=== PATIENT | male | born 1950 | race Caucasian/White ===

== ENCOUNTER 2019-06-28 09:27 | Outpatient (CLI) | payer MEDICARE ==
[2019-06-28 11:06] LABS: PTT 26.5 SEC (22.9-36.1); Prothrombin Time 13.6 SEC (12.0-14.7)
--- NOTE | 2019-06-28 11:15 | RAD ---
CHEST 1 VIEW: Date: 06/28/19 Time: 1053 hours HISTORY: Preoperative evaluation. FINDINGS: Comparison made with exam of 11/24/06. The heart size is normal. The lungs are expanded without focal areas of consolidation, pneumothoraces , or pleural effusions. There are degenerative changes in the spine. IMPRESSION: No acute process. POS: ISHA
[2019-06-28 11:21] LABS: ALT (SGPT) 29 U/L (8-55); AST (SGOT) 21 U/L (5-34); Albumin 4.1 g/dL (3.4-4.8); Alkaline Phosphatase 72 U/L (40-150); Anion Gap 10 mmol/L (10-20); BUN (Urea Nitrogen) 13 mg/dL (8.4-25.7); Bilirubin, Total 0.6 mg/dL (0.2-1.2); Calc. Creatinine Clearance 0 mL/min (70-130); Calcium 9.3 mg/dL (7.8-10.44); Carbon Dioxide 26 mmol/L (23-31); Chloride 102 mmol/L (98-107); Estimated GFR-MDRD 88; Globulin 2.8 g/dL (2.4-3.5); Glucose 197 mg/dL (80-115); Potassium 4.1 mmol/L (3.5-5.1); Protein, Total 6.9 g/dL (5.8-8.1); Sodium 134 mmol/L (136-145)
--- NOTE | 2019-06-29 11:03 | EKG ---
Test Reason : Blood Pressure : / mmHG Vent. Rate : 058 BPM Atrial Rate : 058 BPM P-R Int : 174 ms QRS Dur : 086 ms QT Int : 394 ms P-R-T Axes : 058 -10 062 degrees QTc Int : 386 ms Sinus bradycardia Otherwise normal ECG Confirmed by HAYDER ACOSTA ([id number]) on 06/29/2019 11:03:11 AM Referred By: KENTRELL Confirmed By:HAYDER ACOSTA
== END 2019-06-28 09:28 | disposition home or self-care (01) ==
LOC: LABBT 09:27
PROVIDERS: ATTEND Internal Medicine Cardiovascular Disease
DX: Z01.818 Encounter for other preprocedural examination (principal); R94.39 Abnormal result of other cardiovascular function study
CPT/HCPCS: 71045; 80053; 85610; 85730; 93005; 93010

== ENCOUNTER 2019-07-02 05:56 | Day surgery (SDC) | payer MEDICARE ==
[2019-07-02] MEDS ORDERED: Lidocaine 1% (PF) 30 ML VIAL ONE (06:46)
[2019-07-02 07:34] LABS: #Basophils 0.1 thou/uL (0.0-0.2); #Eosinphils 0.5 thou/uL (0.0-0.7); #Lymphocytes 2.6 thou/uL (1.20-3.40); #Monocytes 0.5 thou/uL (0.11-0.59); #Neutrophils 4.2 thou/uL (1.40-6.50); %Basophils 0.6 % (0.0-1.0); %Eosinophils 5.8 % (0.0-10.0); %Lymphocytes 32.9 % (21.0-51.0); %Monocytes 6.9 % (0.0-10.0); %Neutrophils 53.8 % (42.0-75.0); Hemoglobin 13.3 g/dL (14.0-18.0); Mean Corpuscular HGB CONC 35.1 g/dL (32.0-36.0); Mean Platelet Volume 6.6 fL (7.4-10.4); Platelet Count 209 thou/uL (130-400); RBC Distribution Width 11.7 % (11.5-14.5); Red Blood Cell (RBC) Count 4.02 mill/uL (4.70-6.10); White Blood Cell (WBC) Count 7.8 thou/uL (4.8-10.8)
[2019-07-02] MEDS ORDERED: Heparin 10,000 UNITS/1 ML VIAL ONE (07:43)
[2019-07-02] MEDS ORDERED: Nitroglycerin 100MG/250ML BOT 250 ML ONE (07:43)
[2019-07-02] MEDS ORDERED: Verapamil 5 MG/2 ML VIAL ONE (07:53)
[2019-07-02] MEDS ORDERED: Midazolam HCl 2 mg/2 ml Vial ONE (07:53)
[2019-07-02] MEDS ORDERED: Iopamidol 370 76% 100 ML VIAL ONE (10:05)
--- NOTE | 2019-07-03 02:33 | DIS ---
DATE OF ADMISSION: 07/02/2019 DATE OF DISCHARGE: 07/02/2019 DATE OF PROCEDURE: 07/02/2019. HOSPITAL COURSE: A 69-year-old patient with history of coronary artery disease, who has undergone angioplasty and stent placement to the right coronary artery on 2 occasions. He also has a history of hypertension, diabetes, and hypercholesterolemia, was seen in the office, underwent stress testing, was found to have an abnormal stress test. He was advised to undergo cardiac catheterization. He was taken to [facility], where the procedure was performed today. He was found to have mild plaque in the left anterior descending artery. The second diagonal branch was 100% occluded with retrograde filling from the left system. The left circumflex also was 100% occluded, and there was some filling from the obtuse marginal branch from the right and left collaterals. The right coronary had patent stent to the large dominant vessel and 60% distal stenosis in the posterior lateral branch. The left ventricular systolic function showed ejection fraction of about 55%. DISCHARGE MEDICATIONS: Include; 1. Lipitor 80 mg a day. 2. Coreg 25 mg b.i.d. 3. Folic acid 400 mg daily. 4. Zetia 10 mg a day. 5. Aspirin 81 mg a day. 6. Vitamin B12. 7. Multivitamins. 8. Lisinopril 5 mg daily. 9. Vitamin E daily. 10. Nitroglycerin as needed. 11. Plavix 75 mg daily. FOLLOWUP: He is to follow up with me in the next 2 to 4 weeks in the office. He will continue his routine follow up with his primary care physician. There were no difficulties or complications during the procedure. Job ID: [id number]
== END 2019-07-02 11:42 | disposition home or self-care (01) ==
LOC: CCL 05:56
PROVIDERS: ATTEND Internal Medicine Cardiovascular Disease
PROC: 4A023N7 Measurement of Cardiac Sampling and Pressure, Left Heart, Percutaneous Approach (ICD-10-PCS; principal; 2019-07-02)
PROC: B2111ZZ Fluoroscopy of Multiple Coronary Arteries using Low Osmolar Contrast (ICD-10-PCS; 2019-07-02)
DX: I25.10 Atherosclerotic heart disease of native coronary artery without angina pectoris (principal); I25.82 Chronic total occlusion of coronary artery; I10 Essential (primary) hypertension; E78.2 Mixed hyperlipidemia; I83.11 Varicose veins of right lower extremity with inflammation; E11.9 Type 2 diabetes mellitus without complications; E78.00 Pure hypercholesterolemia, unspecified; Z79.82 Long term (current) use of aspirin; Z79.02 Long term (current) use of antithrombotics/antiplatelets; Z79.899 Other long term (current) drug therapy; Z88.8 Allergy status to other drugs, medicaments and biological substances; Z95.5 Presence of coronary angioplasty implant and graft
CPT/HCPCS: 85025; 93458; 99152; C1769; J1644; J2001; J2250

== ENCOUNTER 2019-12-20 13:59 | Outpatient (CLI) | payer MEDICARE ==
--- NOTE | 2019-12-20 14:14 | RAD ---
EXAM: Two views chest PROVIDED CLINICAL HISTORY: Dyspnea COMPARISON: 06/28/2019 FINDINGS: Cardiac and mediastinal silhouette appears within normal limits. Lungs appear free of significant opa city. No pleural fluid or pneumothorax apparent. IMPRESSION: No evidence for an acute cardiopulmonary process.
== END 2019-12-20 14:00 | disposition home or self-care (01) ==
LOC: RAD 13:59
PROVIDERS: ATTEND Internal Medicine Pulmonary Disease
DX: R06.00 Dyspnea, unspecified (principal)
CPT/HCPCS: 71046